=== PATIENT | female | born 1975 | race Caucasian/White ===

== ENCOUNTER → 2017-03-28 | Day surgery (SDC) | payer OTHER ==
[2017-03-20 10:37] VITALS: Ht 161.3 cm; Wt 61.8 kg
[~2017-03-28] VITALS: Ht 161.3 cm; Wt 61.8 kg
[~2017-03-28] MED LIST: ATOR-24 PO; BACL10TA PO; BUPRTAB PO; DICL-201 PO; FERR1TAB13 PO; GABA-113 PO; GLYCOPYRROLATE INJ 0.2 MG/ML VIAL ONE; HYDR12.55 PO; LEVO75TA PO; MIDAZOLAM HCL 1 MG/ML 2ML VIAL ONE; OMEP40CA41 PO; OXYSR/10 PO; PARO1TAB27 PO; PARO1TAB29 PO; POTA10TA PO; PROPOFOL IV EMULSION 10 MG/ML 20 ML VIAL IV ONE; TOPI200T20 PO; VALA1TAB31 PO; VNTHFA/IN INH
--- NOTE | 2017-03-28 15:59 | Endo History and Physical ---
History & Physical Date of Service: Mar 28, 2017. Chief Complaint: abdominal pain Referring Physician: jeremi Strickland PA-C History of Present Illness 41 yo CF who presents for Colonoscopy secondary to abdominal pain. Past Surgical History Hx Cardiac Surgery: No Hx Internal Defibrillator: No Hx Pacemaker: No Hx Abdominal Surgery: Yes (HYSTERECTOMY, TUBAL LIGATION, UTERINE POLYPS REMOVED ) Hx of Implantable Prosthesis: No Hx Post-Op Nausea and Vomiting: No Hx Cancer Surgery: No Hx Thoracic Surgery: No Hx Orthopedic: No Hx Urinary Tract Surgery: No Family History None Social History Smoking Status: Current Every Day Smoker Hx Substance Use: No Hx Alcohol Use: No Allergies Coded Allergies: NO KNOWN DRUG ALLERGIES (Verified Allergy, Unknown, ., 03/20/17) POLLEN (Verified Allergy, Unknown, SNEEZING, 03/20/17) Current Medications Reported Home Medications Medications Dose Route/Sig Max Daily Dose Days Date Category Dose Instructions Wellbutrin Xl (Bupropion Hcl) 150 Mg Tab 1 Tab PO QPM 30 03/20/17 Reported Ventolin Hfa (Albuterol) 200 Puffs/31047 Mcg Aers 2-4 Puffs INH Q6H PRN 03/20/17 Reported Valtrex (Valacyclovir Hcl) 1 Gm Tab 1 Tab PO DAILY PRN 30 03/20/17 Reported Topamax (Topiramate) 200 Mg Tab 200 Mg PO BID 03/20/17 Reported Synthroid (Levothyroxine Sodium) 75 Mcg Tab 75 Mcg PO QAM 03/20/17 Reported K-Tabs (Potassium Chloride) 10 Meq Tab 1 Tab PO QPM 03/20/17 Reported Paxil (Paroxetine HCl) 40 Mg Tab 40 Mg PO QPM 03/20/17 Reported Paxil (Paroxetine HCl) 20 Mg Tab 20 Mg PO QPM 03/20/17 Reported Oxycontin (Oxycodone HCl) 10 Mg Tabcr 1 Tab PO DAILY PRN 03/20/17 Reported Prilosec (Omeprazole) 40 Mg Cap 40 Mg PO QAM 03/20/17 Reported Lipitor (Atorvastatin Calcium) 40 Mg Tab 40 Mg PO HS 03/20/17 Reported Hydrochlorothiazide 12.5 Mg Tab 1 Tab PO DAILY PRN 90 03/20/17 Reported Neurontin (Gabapentin) 300 Mg Cap 300 Mg PO HS 03/20/17 Reported Kp Ferrous Sulfate (Ferrous Sulfate) 325 Mg Tab 1 Tab PO TID 30 03/20/17 Reported Voltaren (Diclofenac Sodium) 75 Mg Tabcr 75 Mg PO BID PRN 03/20/17 Reported WITH FOOD Lioresal (Baclofen) 10 Mg Tab 10 Mg PO HS 03/20/17 Reported Vital Signs Weight (Kilograms): 61.82 Height (Feet): 5 Height (Inches): 3.5 Date Time Temp Pulse Resp B/P (MAP) Pulse Ox O2 Delivery O2 Flow Rate FiO2 03/28/17 15:25 36.8 69 20 128/81 (97) 99 Room Air Physical Exam General Appearance: WD/WN, no apparent distress Respiratory/Chest: Auscultation: breath sounds normal Cardiovascular: Heart Auscultation: RRR Abdomen: Bowel Sounds: normal Inspection & Palpation: soft, non-distended, no tenderness, guarding & rebound Assessment and Plan Assessment: 41 yo CF who presents for Colonoscopy secondary to abdominal pain. Plan: Proceed with colonoscopy.
--- NOTE | 2017-03-28 16:44 | Discharge Instructions ---
Endoscopy Patient Instructions Date / Procedure(s) Performed Mar 28, 2017. Colonoscopy Allergy Information Coded Allergies: NO KNOWN DRUG ALLERGIES (Verified Allergy, Unknown, ., 03/20/17) POLLEN (Verified Allergy, Unknown, SNEEZING, 03/20/17) Discharge Date / Findings Mar 28, 2017. Random colon biopsies Medication Instructions OK to resume all medications today as prescribed Reported Home Medications Medications Dose Route/Sig Max Daily Dose Days Date Category Dose Instructions Wellbutrin Xl (Bupropion Hcl) 150 Mg Tab 1 Tab PO QPM 30 03/20/17 Reported Ventolin Hfa (Albuterol) 200 Puffs/07773 Mcg Aers 2-4 Puffs INH Q6H PRN 03/20/17 Reported Valtrex (Valacyclovir Hcl) 1 Gm Tab 1 Tab PO DAILY PRN 30 03/20/17 Reported Topamax (Topiramate) 200 Mg Tab 200 Mg PO BID 03/20/17 Reported Synthroid (Levothyroxine Sodium) 75 Mcg Tab 75 Mcg PO QAM 03/20/17 Reported K-Tabs (Potassium Chloride) 10 Meq Tab 1 Tab PO QPM 03/20/17 Reported Paxil (Paroxetine HCl) 40 Mg Tab 40 Mg PO QPM 03/20/17 Reported Paxil (Paroxetine HCl) 20 Mg Tab 20 Mg PO QPM 03/20/17 Reported Oxycontin (Oxycodone HCl) 10 Mg Tabcr 1 Tab PO DAILY PRN 03/20/17 Reported Prilosec (Omeprazole) 40 Mg Cap 40 Mg PO QAM 03/20/17 Reported Lipitor (Atorvastatin Calcium) 40 Mg Tab 40 Mg PO HS 03/20/17 Reported Hydrochlorothiazide 12.5 Mg Tab 1 Tab PO DAILY PRN 90 03/20/17 Reported Neurontin (Gabapentin) 300 Mg Cap 300 Mg PO HS 03/20/17 Reported Kp Ferrous Sulfate (Ferrous Sulfate) 325 Mg Tab 1 Tab PO TID 30 03/20/17 Reported Voltaren (Diclofenac Sodium) 75 Mg Tabcr 75 Mg PO BID PRN 03/20/17 Reported WITH FOOD Lioresal (Baclofen) 10 Mg Tab 10 Mg PO HS 03/20/17 Reported Provider Instructions Activity Restrictions - No exercising or heavy lifting for 24 hours. - Do not drink alcohol the day of the procedure. - Do not drive a car or operate machinery until the day after the procedure. - Do not make any important decisions or sign important papers in 24 hours after the procedure. Following Day: - Return to full activity which may include returning to work/school. Diet Start your diet with liquids and light foods (jello, soup, juice, toast). Then eat your usual diet if not nauseated. Treatment For Common After Affects For mild abdominal pain, bloating, or excessive gas: - Rest - Eat lightly - Lie on right side Follow-Up Information Follow-up with jeremi Strickland PA-C as scheduled Anesthesia Information What You Should Know You have had a procedure that required some medicine to reduce anxiety and discomfort. This treatment is called moderate sedation. After receiving the treatment, you may be sleepy, but you will be able to breathe on your own. The effects of the treatment may last for several hours. Follow these instructions along with Activity/Diet recommendations noted above: * Do NOT do anything where dizziness or clumsiness would be dangerous. * Rest quietly at home today, then you can be up and about tomorrow. * Have a responsible person stay with you the rest of today. * You may have had an I.V. today. If so, you may take the dressing off later today. Recommendations Call your doctor if: * Trouble breathing * Continuous vomiting for more than 24 hours * Temperature above 101 degrees * Severe abdominal pain or bloating * Pain not relieved by pain medicine ordered * There is increased drainage or redness from any incision * A large amount of rectal bleeding greater than 2-3 tablespoons. (If you had a polyp/s removed or have hemorrhoids, a small amount of blood - from the rectum is to be expected.) * You have any unanswered questions or concerns. IN THE EVENT OF A SERIOUS EMERGENCY, GO TO THE NEAREST EMERGENCY ROOM Your discharge instructions were prepared by provider Dino Gallardo. Patient Instructions Signature Page Chelsea Meyer Patient (or Guardian) Signature/Date: I have read and understand the instructions given to me by my caregivers. Caregiver/RN/Doctor Signature/Date: The above-named patient and/or guardian has received patient instructions on this date. + Original Patient Signature Page (only) stays with chart. Please make copy for patient.
[2017-03-28 16:54] VITALS: BP 117/67; PULSE 72; O2SAT 98
--- NOTE | 2017-03-28 17:00 | GI REPORT ---
Procedure Date: 03/28/2017 3:54 PM Procedure: Colonoscopy Indications: Generalized abdominal pain Medicines: Monitored Anesthesia Care Complications: No immediate complications. Estimated Blood Loss: Estimated blood loss: none. Procedure: Pre-Anesthesia Assessment: - Prior to the procedure, a History and Physical was performed, and patient medications and allergies were reviewed. The patient's tolerance of previous anesthesia was also reviewed. The risks and benefits of the procedure and the sedation options and risks were discussed with the patient. All questions were answered, and informed consent was obtained. Prior Anticoagulants: The patient has taken no previous anticoagulant or antiplatelet agents. ASA Grade Assessment: II - A patient with mild systemic disease. After reviewing the risks and benefits, the patient was deemed in satisfactory condition to undergo the procedure. After I obtained informed consent, the scope was passed under direct vision. Throughout the procedure, the patient's blood pressure, pulse, and oxygen saturations were monitored continuously. The On-site loaner was introduced through the anus and advanced to the terminal ileum. The colonoscopy was performed without difficulty. The patient tolerated the procedure well. The quality of the bowel preparation was good. The terminal ileum, ileocecal valve, appendiceal orifice, and rectum were photographed. Findings: The colon (entire examined portion) appeared normal. Several random biopsies were obtained with cold forceps for histology in the entire colon. Impression: - The entire examined colon is normal. - Several random biopsies were obtained in the entire colon. Recommendation: - Resume previous diet. - Continue present medications. - Repeat colonoscopy for surveillance based on pathology results. - Return to primary care physician as previously scheduled. Dino Gallardo DO 03/28/2017 5:00:36 PM This report has been signed electronically. Note Initiated On: 03/28/2017 3:54 PM I attest to the content of the Intraoperative Record and orders documented therein, exceptions below
--- NOTE | 2017-03-28 17:15 | Anesthesiology Progress Note ---
Anesthesia Post Op Note Date & Time Mar 28, 2017 at 17:14 Vital Signs Pain Intensity: 0 Vital Signs Past 12 Hours Date Time Temp Pulse Resp B/P (MAP) Pulse Ox O2 Delivery O2 Flow Rate FiO2 03/28/17 16:54 72 16 117/67 (84) 98 Room Air 03/28/17 16:39 78 16 108/68 (81) 100 Room Air 03/28/17 16:24 91 16 104/66 (79) 100 Room Air 03/28/17 15:25 36.8 69 20 128/81 (97) 99 Room Air Notes Mental Status: alert / awake / arousable, participated in evaluation Pt Amnestic to Procedure: Yes Nausea / Vomiting: adequately controlled Pain: adequately controlled Airway Patency, RR, SpO2: stable & adequate BP & HR: stable & adequate Hydration State: stable & adequate Anesthetic Complications: no major complications apparent Pt did well.
== END | disposition home or self-care (01) ==
LOC: C.GI 14:30
PROVIDERS: ATTEND Internal Medicine
DX: R10.84 Generalized abdominal pain (principal); J45.909 Unspecified asthma, uncomplicated; F41.9 Anxiety disorder, unspecified; F32.9 Major depressive disorder, single episode, unspecified; Z90.710 Acquired absence of both cervix and uterus; Z98.51 Tubal ligation status; F17.200 Nicotine dependence, unspecified, uncomplicated; Z68.23 Body mass index [BMI] 23.0-23.9, adult